=== PATIENT | female | born 1970 | race Caucasian/White ===

== ENCOUNTER → 2018-05-16 07:51 | Outpatient (CLI) | payer BC, SELFPAY ==
[2018-05-16 08:08] LABS: HCT 40.2 % (36.0-46.0); HGB 13.7 g/dL (12.0-15.5); Mean Corp. HGB Concentration 34.1 g/dL (32.0-36.0); Mean Corpuscular Hemoglobin 31.9 pg (27.0-33.0); Mean Corpuscular Volume 93.5 fL (80-95); Mean Platelet Volume 9.8 fL (8.0-11.0); Platelet Count 263 x1000/uL (130-400); RBC Distribution Width 13.7 % (11.7-14.6); White Blood Cell Count 8.84 k/cumm (4.4-10.8)
[2018-05-16 10:06] LABS: ALT 33 U/L (12-78); AST 18 U/L (15-37); Albumin 3.8 g/dL (3.4-5.0); Alkaline Phosphatase 93 U/L (46-116); Anion Gap 11.2 mmol/L (3-11); BUN 12 mg/dL (7-18); CO2 26.8 mmol/L (21.0-32.0); CREATININE 0.98 mg/dL (0.55-1.02); Chloride 101 mmol/L (98-107); Cholesterol 209 mg/dL (50-200); Glucose 96 mg/dL (70-100); HDL Cholesterol 43 mg/dL (40-60); LDL CHOLESTEROL 147 mg/dL (<100); Potassium 4.2 mmol/L (3.5-5.1); Sodium 139 mmol/L (136-145); TSH (W/Ref FT4) 2.36 uIU/mL (0.358-3.74); Total Protein 7.4 g/dL (6.4-8.2); Triglyceride 158 mg/dL (30-150)
[2018-05-16 10:19] LABS: Bilirubin, Total 0.5 mg/dL (0.2-1.0)
== END ==
PROVIDERS: PCP Family Medicine; Visit Provider Family Medicine
DX: E66.01 Morbid (severe) obesity due to excess calories (principal)
CPT/HCPCS: 36415; 80053; 80061; 83721; 85027; 84443

== ENCOUNTER 2019-04-18 00:36 | Outpatient (CLI) | payer OTHER, SELFPAY ==
--- NOTE | 2019-04-18 13:00 | DI.MAMMO_ITS ---
SYMPTOMS/DIAGNOSIS: SCREENING, Z12.31 MAMMOGRAMS: Mammograms were interpreted according to the usual protocol including computer analysis with CAD system, tomosynthesis and C view imaging. Comparison is made with prior examinations. No suspicious masses or microcalcifications are seen. There is no definite evidence of malignancy. IMPRESSION: Negative mammogram. Routine screening is recommended. Category 1, breast density B. MQSA ASSESSMENT OF FINDINGS: Negative. Category 1. Patient will receive a letter notifying them of these results. BI-RADS category B. There are scattered areas of fibroglandular density.
== END 2019-04-18 00:56 ==
PROVIDERS: PCP Family Medicine; Visit Provider Nurse Practitioner Family
DX: Z12.31 Encounter for screening mammogram for malignant neoplasm of breast (principal)
CPT/HCPCS: 77063; 77067

== ENCOUNTER 2019-05-14 16:45 | Outpatient (REF) | payer OTHER, SELFPAY ==
[2019-05-14 19:07] LABS: Bilirubin Negative (Negative); Blood Negative (Negative); Clarity Clear (Clear); Glucose Negative (Negative); Ketones Negative (Negative); Leukocyte Esterase Negative (Negative); Nitrite Negative (Negative); Urobilinogen 0.2 EU/dL (Up TO 0.2); pH 5.5 (5-8)
[2019-05-14 19:08] LABS: HCT 41.2 % (36.0-46.0); HGB 13.7 g/dL (12.0-15.5); Mean Corp. HGB Concentration 33.3 g/dL (32.0-36.0); Mean Corpuscular Hemoglobin 31.4 pg (27.0-33.0); Mean Corpuscular Volume 94.5 fL (80-95); Mean Platelet Volume 10.5 fL (8.0-11.0); Platelet Count 394 x1000/uL (130-400); RBC 4.36 m/cumm (4.00-5.20); RBC Distribution Width 13.3 % (11.7-14.6); White Blood Cell Count 8.27 k/cumm (4.4-10.8)
[2019-05-14 19:15] LABS: Anion Gap 10.4 mmol/L (3-11); BUN 9 mg/dL (7-18); CO2 25.6 mmol/L (21.0-32.0); CREATININE 0.81 mg/dL (0.55-1.02); Calcium 9.4 mg/dL (8.5-10.1); Chloride 101 mmol/L (98-107); Glucose 94 mg/dL (70-100); Potassium 4.4 mmol/L (3.5-5.1); Sodium 137 mmol/L (136-145)
== END 2019-05-14 17:05 ==
LOC: NCHCN 16:45
PROVIDERS: PCP Family Medicine; Visit Provider Family Medicine
DX: R51 Headache (principal); R53.83 Other fatigue; Z84.1 Family history of disorders of kidney and ureter
CPT/HCPCS: 80048; 85027; 81003

== ENCOUNTER 2019-05-15 01:05 | Outpatient (CLI) | payer OTHER, SELFPAY ==
--- NOTE | 2019-05-15 15:31 | DI.RAD_ITS ---
SYMPTOMS/DIAGNOSIS: CLAVICLE PAIN X 1-2 MOS, M89.8X8 RIGHT CLAVICLE: Two views were obtained. There are minimal degenerative changes at the acromioclavicular joint. No other bony or soft tissue abnormality seen.
== END 2019-05-15 01:25 ==
PROVIDERS: PCP Family Medicine; Visit Provider Family Medicine
DX: M25.511 Pain in right shoulder (principal); M89.8X8 Other specified disorders of bone, other site; M19.011 Primary osteoarthritis, right shoulder
CPT/HCPCS: 73000

== ENCOUNTER 2019-05-22 18:14 | Outpatient (REF) | payer OTHER, SELFPAY ==
[2019-05-24 09:54] LABS: IgA 196 mg/dL (85-499)
== END 2019-05-22 18:34 ==
LOC: NCHCN 18:14
PROVIDERS: PCP Family Medicine; Visit Provider Family Medicine
DX: Z84.1 Family history of disorders of kidney and ureter (principal)
CPT/HCPCS: 82784

== ENCOUNTER 2020-03-19 10:08 | Outpatient (REF) | payer OTHER, SELFPAY ==
[2020-03-19 16:41] LABS: Bilirubin Negative (Negative); Blood Negative (Negative); Clarity Clear (Clear); Glucose Negative (Negative); Ketones Negative (Negative); Leukocyte Esterase Small (Negative); Nitrite Negative (Negative); Urobilinogen 0.2 EU/dL (Up TO 0.2); pH 6.5 (5-8)
[2020-03-19 17:12] LABS: Bacteria Negative HPF (Negative); Crystals Negative HPF (Negative); Epithelial Cells Few HPF (Negative); Mucus Trace (Negative); RBC Negative HPF (0-2)
[2020-03-19 17:13] LABS: C & S Indicated? Yes; Casts Negative LPF (Negative)
== END 2020-03-19 10:28 ==
LOC: NCHCN 10:08
PROVIDERS: PCP Family Medicine; Visit Provider Family Medicine
DX: R82.90 Unspecified abnormal findings in urine (principal)
CPT/HCPCS: 81003; 81015; 87086

== ENCOUNTER 2020-03-19 18:55 | Outpatient (REF) | payer OTHER, SELFPAY ==
[2020-03-21 14:51] LABS: Chlamydia Result Negative (Negative); GC Result Negative (Negative)
== END 2020-03-19 19:15 ==
LOC: NCHCN 18:55
PROVIDERS: PCP Family Medicine; Visit Provider Family Medicine
DX: R82.90 Unspecified abnormal findings in urine (principal); Z11.6 Encounter for screening for other protozoal diseases and helminthiases
CPT/HCPCS: 87491; 87591; 87480; 87510; 87660

== ENCOUNTER 2020-04-09 09:41 | Outpatient (REF) | payer BC, SELFPAY ==
[2020-04-09 13:29] LABS: Bilirubin Negative (Negative); Blood Negative (Negative); Clarity Cloudy (Clear); Glucose Negative (Negative); Ketones Negative (Negative); Leukocyte Esterase Negative (Negative); Nitrite Negative (Negative); Specific Gravity >= 1.030 (1.005-1.025); Urobilinogen 0.2 EU/dL (Up TO 0.2); pH 5.5 (5-8)
== END 2020-04-09 10:01 ==
LOC: NCHCN 09:41
PROVIDERS: PCP Family Medicine; Visit Provider Nurse Practitioner Family
DX: R39.9 Unspecified symptoms and signs involving the genitourinary system (principal)
CPT/HCPCS: 81003; 87086; 87480; 87510; 87660

== ENCOUNTER 2020-05-05 13:20 | Outpatient (REF) | payer BC, SELFPAY ==
[2020-05-07 18:14] LABS: SARS-CoV-2 RNA Undetected (Undetected); SARS-CoV-2 Specimen Source Nasopharynx
== END 2020-05-05 13:40 ==
LOC: NCHCN 13:20
PROVIDERS: PCP Family Medicine; Visit Provider Nurse Practitioner Family
DX: Z11.59 Encounter for screening for other viral diseases (principal)
CPT/HCPCS: U0003

== ENCOUNTER 2020-06-09 19:59 | Outpatient (REF) | payer BC, SELFPAY ==
[2020-06-09 19:26] LABS: Hemoglobin A1C 5.7 % (<5.7)
[2020-06-09 20:06] LABS: Calculated LDL 145 mg/dL (<100); Cholesterol 233 mg/dL (<200); HDL Cholesterol 45 mg/dL (40-60); Triglyceride 218 mg/dL (<150)
== END 2020-06-09 20:19 ==
LOC: NCHCN 19:59
PROVIDERS: PCP Family Medicine; Visit Provider Family Medicine
DX: E66.01 Morbid (severe) obesity due to excess calories (principal); Z13.220 Encounter for screening for lipoid disorders; Z13.1 Encounter for screening for diabetes mellitus
CPT/HCPCS: 80061; 83036

== ENCOUNTER 2020-06-25 02:59 | Outpatient (CLI) | payer BC, SELFPAY ==
--- NOTE | 2020-06-25 | DI.MAMMO_ITS ---
EXAM: MAMMO SCREENING CLINICAL HISTORY: SCREENING,Z12.39 TECHNIQUE: Mammograms were interpreted according to the usual protocol including computer analysis w [employer] CAD system, tomosynthesis and C-view imaging. COMPARISON: 2011 through 2018 FINDINGS: The breasts are composed of scattered fibroglandular densities, Breast Density category B. No suspicious masses or suspicious microcalcifications are seen. No skin thickening or abnormal axillary lymph nodes are seen. There has been no significant change from prior exams. IMPRESSION: BI-RADS Category 1, Negative mammogram Yearly screening mammography is recommended. Breast Density - Category B, scattered fibroglandular densities. A negative radiographic report should not delay biopsy if a dominant or clinically suspicious mass is present. Up to ten percent of cancers are not identified on mammography. A negative report may reinforce clinical impression. Adenosis and dense breasts may obscure an underlying neoplasm. False positive reports average 6 to 10%. Patient will receive a letter notifying them of these results.
== END 2020-06-25 03:19 ==
PROVIDERS: PCP Family Medicine; Visit Provider Family Medicine
DX: Z12.31 Encounter for screening mammogram for malignant neoplasm of breast (principal)
CPT/HCPCS: 77063; 77067

== ENCOUNTER 2020-08-12 03:57 | Outpatient (CLI) | payer BC, SELFPAY ==
[2020-08-13 17:35] LABS: SARS-CoV-2 RNA Not Detected (NotDetected); SARS-CoV-2 RNA Source Nasal/Nares
== END 2020-08-12 04:17 ==
PROVIDERS: PCP Family Medicine; Visit Provider Surgery
DX: Z01.818 Encounter for other preprocedural examination (principal)
CPT/HCPCS: U0003

== ENCOUNTER 2020-08-15 09:53 | Day surgery (SDC) | payer BC, SELFPAY ==
[2020-08-15 10:09] VITALS: BP 124/86; PULSE 81; RESP 16; TEMP 36.3; O2SAT 97
[2020-08-15] MEDS: Lactated Ringers 1,000 ML 80 ML IV (10:31)
--- NOTE | 2020-08-15 12:44 | W.PM.DSUDISC ---
Discharge Plan Disposition Patient Disposition: HOME Condition: Good Discharge Details Reason For Visit: Colonoscopy Attending Provider: Jazmine Saldana Primary Care Provider: Yanira Deng Home Meds and New Rx's Prescriptions: Continued atorvastatin 40 mg tablet 40 mg PO DAILY RF: 0 Mirena 1 EACH intrauterine device 1 ea Intrauterine ONCE Qty: 1 RF: 0 glucosamine sulfate [Glucosamine] 500 mg tablet 500 mg PO BID RF: 0 spironolactone 100 mg tablet 100 mg PO BID RF: 0 aspirin [Adult Aspirin Regimen] 81 mg tablet,delayed release (DR/EC) 81 mg PO DAILY RF: 0 Discharge Instructions Additional Instructions: Findings: Your colonoscopy showed mild diverticulosis. Make sure to take in 30 grams of fiber daily. Follow up: Plan for routine screening colonoscopy in 10 years or sooner if symptoms arise. Please call if you develop: fevers >101.5 Nausea or Vomiting Abdominal pain that is not transient DAY SURGERY UNIT POST COLONOSCOPY INSTRUCTIONS 1. Because there will be medication in your system for the next 24 hours, you may feel a little sleepy. Your coordination will be affected. Therefore: a. Do not drive or operate dangerous equipment for 24 hours. b. Do not drink alcohol beverages for 24 hours (not even beer). c. Plan to go home and rest for the day. 2. Generally there are no restrictions on your activity after a day or so has gone by, but you may feel a bit fatigued for a few days. 3 After you arrive home you may have a light meal and return to a normal diet as you can tolerate it without feeling sick to your stomach. 4. After surgery, you may feel pain or discomfort. This should be only transient, but if it persists please contact your doctor. 5. If there are any questions regarding the findings of your procedure, please feel free to contact your doctor. 6. If you are unable to contact your doctor with a problem, contact the hospital at [phone]. 7. Continue all your regular medications unless directed otherwise. I understand the above instructions and have no questions. Signature of Patient or Responsible Adult Escort Date/Time Name of Responsible Adult Escort Signature of Nurse Date/Time Activity:: Activity as Tolerated Diet:: As Tolerated Discharge Orders Discharge Orders: Discharge Order (Routine); Ordered 08/15/20 Ordered By: Jazmine Saldana DS: Diagnosis Discharge Diagnosis (1) Diverticulosis: Status: Acute
--- NOTE | 2020-08-15 12:44 | W.COLOREPORT ---
Date of service: 08/15/20 Time of Service: 13:30 Colonoscopy Report Date of procedure: 08/15/20 Pre-op diagnosis general: Screening Post-op diagnosis procedure note: other (Mild diverticulosis) Procedure: Colonoscopy Surgeon: Jazmine Saldana Anesthesia proc note operative: MAC Indications: This 50 year old woman presents for her first screening colonoscopy. No symptoms or FH colon cancer. Procedure Description: The patient was placed in the left Grayson position. Propofol was titrated to sedation. Digital rectal examination revealed no abnormalities. The scope was advanced to the cecum without difficulty. The ileocecal valve and appendiceal orifice were clearly identified. The prep was good. The scope was slowly withdrawn over the course of greater than 6 minutes with no abnormalities seen in the ascending, transverse, descending, sigmoid colon or rectum including on retroflexed view. Mild sigmoid diverticulosis was noted. The patient tolerated the procedure well and was stable to recovery. Plan for routine screening colonoscopy in 10 years or sooner if symptoms indicate.
[2020-08-15] MEDS: Scopolamine 1 MG/3 DAYS PATCH (12:50)
[2020-08-15 13:58] VITALS: BP 114/73; PULSE 70; RESP 16; TEMP 36.5; O2SAT 98
== END 2020-08-15 14:30 | disposition home or self-care (01) ==
PROVIDERS: PCP Family Medicine; Visit Provider Surgery
PROC: 0DJD8ZZ Inspection of Lower Intestinal Tract, Via Natural or Artificial Opening Endoscopic (ICD-10-PCS; CPT 45378; principal; 2020-08-15 12:15)
DX: Z12.11 Encounter for screening for malignant neoplasm of colon (principal); K57.30 Diverticulosis of large intestine without perforation or abscess without bleeding
CPT/HCPCS: 45378; J2001; J2405

== ENCOUNTER 2020-11-13 17:04 | Emergency (ER) | payer BC, SELFPAY ==
[2020-11-13] VITALS (19 sets, daily range): BP systolic 104–132; BP diastolic 37–82; PULSE 59–79; RESP 9–19; TEMP 36.4–36.6; O2SAT 95–100
--- NOTE | 2020-11-13 17:45 | RT.EKG_ITS ---
APPROVED REPORT Exam: Resting ECG Patient Location: E HR:60 bpm ECG Measurements Heart Rate 60 AXIS ID 146 P 62 QRSd 91 QRS 46 QT 397 T 29 QTc 396 Conclusion Sinus rhythm...normal P axis, V-rate 60- 99 I have reviewed and interpreted ECG and agree with software generated interpretation.
--- NOTE | 2020-11-13 17:55 | ED.GENADUL_ITS ---
Discharge Plan Disposition Patient Disposition: HOME Condition: Stable Discharge Details Clinical Impression: Headache, Paresthesia Primary Care Provider: Yanira Deng ED Provider: Medhat Brewer Home Meds and New Rx's Prescriptions: Continued atorvastatin 40 mg tablet 40 mg PO DAILY RF: 0 Mirena 1 EACH intrauterine device 1 ea Intrauterine ONCE Qty: 1 RF: 0 spironolactone 100 mg tablet 100 mg PO BID RF: 0 aspirin [Adult Aspirin Regimen] 81 mg tablet,delayed release (DR/EC) 81 mg PO DAILY RF: 0 Discharge Instructions Instructions: Paresthesia (ED), General Headache (ED) Additional Instructions: At this time you are feeling significantly improved when compared to your initial presentation and your work-up in the ER has not revealed any obvious emergent process. Please watch for new or worsening symptoms and return to the ER for any concerns. I would like you to reach out to your primary care provider tomorrow for prompt outpatient reevaluation. Discharge Data Discharge Date/Time-TO BE ENTERED AT DEPARTURE: 11/13/20 21:00 Medical Decision Making This is a 50-year-old female who reports a front right and top headache, sharp in nature, began approximately 45 minutes ago. The sharpness has resolved and now is just dull in the same area. She reports paresthesias across her bilateral face in the cheek distribution, right jaw, and her right thumb and fi fth digit. She states that the tingling in her hand has already resolved completely. She did take 4 aspirin today total. Clinically she appears anxious and tearful but otherwise well. She is neurologically intact. Vital signs are unremarkable. We discussed options, will obtain cardiac work-up given the headache associate with paresthesias in her arm. Will obtain a head CT to rule out intracranial process. At this time she feels as though her symptoms are already improving on her own, will be given 1 g p.o. Tylenol. Initial laboratory values are unremarkable. Troponin less than 0.05. Both her head CT and chest x-ray read as negative by radiology. Upon reevaluation she reports that the tingling in her face has nearly completely resolved and the headache is lessening. She is agreeable to awaiting a 3-hour repeat troponin and EKG. Repeat EKG performed at 2009, please see official report by Dr. Rouse. Sinus rhythm, ventricular of 63. No STEMI. Repeat troponin remains less than 0.05. Upon reevaluation patient is using her cell phone without difficulty. She reports that she is essentially asymptomatic at this time. Denies any paresthesias or headache. She is comfortable discharge. We discussed her benign work-up today, the importance of watching for new or worsening symptoms and returning immediately to the ER, and lastly contacting her primary care prov ider tomorrow to set up outpatient reevaluation. Patient has no additional questions or concerns and is comfortable with this plan. Patient is no longer tearful or anxious. She has remained neurologically intact while under my care Medical Records Medical records reviewed: Yes I reviewed the patient's medical records. Imaging Data Radiologic Study: Attestation: I personally reviewed and interpreted this imaging study as follows: Imaging: X-Ray Radiologist's impression: Chest x-ray negative Radiologic Study #2: Attestation: I personally reviewed and interpreted this imaging study as follows: Imaging: CT Scan Radiologist's impression: Head CT negative Lab Data Lab results reviewed: Yes I reviewed the patient's lab results. Lab results narrative: Laboratory Tests Range/Units 11/13/20 11/13/20 11/13/20 18:05 18:05 19:47 WBC (4.4-10.8) 10^3/uL 9.64 RBC (3.93-5.22) 10^6/uL 4.56 Hgb (11.2-15.7) g/dL 14.4 Hct (36.0-46.0) % 42.7 MCV (80-95) fL 93.6 MCH (27.0-33.0) pg 31.6 MCHC (32.0-36.0) % 33.7 RDW (11.7-14.6) % 12.8 Plt Count (130-400) 10^3/uL 388 MPV (8.0-11.0) fL 9.7 Immature Gran % 0.4 Neutrophils % 58.6 Lymphocytes % 33.0 Monocytes % 5.9 Eosinophils % 1.7 Basophils % 0.4 Nucleated RBC % % 0 Absolute Neutrophils (1.2-6.7) 10^3/uL 5.65 Absolute Lymphocytes (1.2-3.4) 10^3/uL 3.18 Absolute Monocytes (0.1-0.8) 10^3/uL 0.57 Absolute Eosinophils (0.0-0.7) 10^3/uL 0.16 Absolute Basophils (0.0-0.2) 10^3/uL 0.04 Sodium (136-145) mmol/L 139 Potassium (3.5-5.1) mmol/L 4.0 Chloride (98-107) mmol/L 101 Carbon Dioxide (21.0-32.0) mmol/L 29.0 Anion Gap (3-11) mmol/L 9.0 BUN (7-18) mg/dL 8 Creatinine (0.55-1.02) mg/dL 0.9 Estimated GFR/1.73 m2 (mL/min/1.73m2) >= 60.00 Glucose (74-106) mg/dL 94 Calcium (8.5-10.1) mg/dL 9.6 Magnesium (1.8-2.4) mg/dL 1.9 Total Bilirubin (0.2-1.0) mg/dL 0.6 AST (15-37) U/L 17 ALT (14-59) U/L 31 Alkaline Phosphatase (46-116) U/L 115 Troponin I (<0.06) ng/mL < 0.05 < 0.05 Total Protein (6.4-8.2) g/dL 8.3 H Albumin (3.4-5.0) g/dL 4.0 ECG Data Attestation: I personally reviewed and interpreted this ECG (s) as follows: Interpretation: Please see official report by Dr. Rouse. Sinus rhythm, ventricular rate of 60. No STEMI. HPI General Mode of arrival: ambulatory . Date/Time Provider Initiated Documentation: 11/13/20 17:17 . Limitations to Documentation: no limitations . Information obtained by: patient . HPI Narrative: This is a 50-year-old female who denies any significant past medical history. She states about 45 minutes ago while she was at work she noticed a sharp pain in her head along the front, right, top aspect. She states the pains were shooting and sharp initially and now just a mild dull headache in the same area remains. She states subsequently she developed some altered sensation in her cheeks bilaterally as well as her right jaw near her mouth. She also felt tingling in her right thumb and fifth finger. She denies any visual changes, neck pain, chest pain, shortness of breath, abdominal pain, nausea, vomiting, pain or swelling in her legs. She states that her brother in the last year of a heart attack in his early-mid 40s and that this has been very hard on her. She denies any other stress, recent illness or trauma. She typically takes a baby aspirin every morning, subsequently took 3 more when her headache began. Related Data Home Medications Medication Instructions Recorded Confirmed Mirena 1 ea INTRAUTERINE ONCE #1 implant 03/27/14 11/13/20 aspirin 81 mg tablet,delayed 81 mg PO DAILY 07/16/20 11/13/20 release spironolactone 100 mg tablet 100 mg PO BID 07/16/20 11/13/20 atorvastatin 40 mg tablet 40 mg PO DAILY 08/01/20 11/13/20 Allergies Allergy/AdvReac Type Severity Reaction Status Date / Time Penicillins Allergy Severe Anaphylaxsi Unverified 11/13/20 17:21 s codeine AdvReac Intermediate upset Verified 11/13/20 17:21 stomach naproxen sodium [From Aleve] AdvReac tachycardia Unverified 11/13/20 17:21 General Stated Complaint: Headache GABBY: 3 Review of Systems Constitutional Constitutional: Denies fatigue, Denies fever(s), Reports headache(s) and Denies weakness Eyes Eyes: Denies change in vision ENT Ears, Nose, Mouth, and Throat: Reports headache(s) and Denies neck pain Cardiovascular Cardiovascular: Denies chest pain and Denies dyspnea Respiratory Respiratory: Denies cough and Denies dyspnea Gastrointestinal Gastrointestinal: Denies abdominal pain, Denies nausea and Denies vomiting Musculoskeletal Musculoskeletal: Denies back pain, Denies neck pain, Reports numbness and Reports tingling Integumentary/Breasts Skin/Breast: Denies rash Neurologic Neurologic: Reports headache(s), Reports numbness, Reports tingling and Denies weakness Endocrine Endocrine: Denies fatigue [facility] Medical History Clavicle pain Finger pain, right Grief reaction Knee pain, left Morbid obesity Pain of left thumb Trochanteric bursitis Surgical History Appendectomy (~1994) section for twins Cholecystectomy (~1994) H/O knee surgery x3 Family History Mother Raynauds disease Father Renal transplant recipient due to viral illness Social History Smoking/Tobacco Use Status: Never Smoking risk assessment performed?: Yes Alcohol Intake: current Alcohol Intake frequency: a few times a week Alcohol type: hard liquor Drug use: Never Substance use type: does not use Do you feel safe at home: Yes Do you feel safe in your relationship?: Yes Exam Const General: cooperative, healthy appearing, comfortable, no acute distress and anxious (Tearful) Orientation: alert, awake and oriented x3 HENMT Head: normal to inspection, normocephalic and atraumatic Ears: external ears normal, TM's normal bilaterally and EAC's normal General nose exam: external nose normal Face and sinus: normal facial exam Mouth: moist mucous membranes Throat: posterior oropharynx normal Eyes General: appearance normal, both eyes and all related structures Alignment and Position: alignment normal Periorbital: periorbital findings normal Eyelids: eyelids normal Conjunctivae: conjunctivae normal Sclera: sclerae normal Cornea: corneas normal Pupils: PERRL EOM: EOM intact bilaterally Direct ophthalmoscopy: normal light reflex Neck Neck: normal visual inspection, full ROM, no meningeal signs, trachea midline, supple and nontender Resp Effort & Inspection: normal respiratory effort and able to speak in complete sentences Auscultation: clear to auscultation bilaterally Cardio Rate: regular rate Rhythm: regular rhythm GI Palpation: soft, not firm, no guarding and nontender Back/Spine/Pelvis Back: No back tenderness Skin General skin exam: no rashes or lesions noted Neuro General: patient alert, patient awake, patient oriented x3, moves all extremities and no focal motor deficits Cranial Nerves: CN's II-XI intact bilaterally Cognition: normal cognition Speech: speech normal Gait: normal gait Motor: muscle tone normal throughout, strength 5/5 throughout, no pronator drift, no movement abnormalities noted and no fasciculations Sensory Exam: no sensory deficits noted Coordination: [id number] test normal and Does not sway with eyes open Extrem General: normal to inspection, full ROM, capillary refill normal, no pedal edema and no calf tenderness Psych Appearance: grossly normal Mental Status: mental status grossly normal Course Vital Signs Vital signs: Vital Signs Temperature 36.4 C L 02/18/21 17:15 Pulse 69 11/13/20 17:15 Respiratory Rate 12 11/13/20 17:15 Blood Pressure 132/82 11/13/20 17:15 Pulse Oximetry 99 11/13/20 17:15 Temperature 36.4 C L 11/13/20 17:15 Temperature Source Skin 11/13/20 17:15 Pulse 69 11/13/20 17:15 Respiratory Rate 12 11/13/20 17:15 Respiratory Effort 11/13/20 17:22 Blood Pressure 132/82 11/13/20 17:15 Pulse Oximetry 99 11/13/20 17:15 Oxygen Delivery Method Room Air 11/13/20 17:15 Oxygen Flow Rate 0 11/13/20 17:15 Pain Level 4 11/13/20 17:23 Comment 11/13/20 17:15
[2020-11-13 18:19] LABS: Abs Immature Grans 0.04 10^3/uL (0.0-0.06); Absolute Basophil Count 0.04 10^3/uL (0.0-0.2); Absolute Eosinophil Count 0.16 10^3/uL (0.0-0.7); Absolute Lymphocyte Count 3.18 10^3/uL (1.2-3.4); Absolute Monocyte Count 0.57 10^3/uL (0.1-0.8); Absolute Neutrophil Count 5.65 10^3/uL (1.2-6.7); Basophils % 0.4; Eosinophils % 1.7; HCT 42.7 % (36.0-46.0); HGB 14.4 g/dL (11.2-15.7); Immature Grans % 0.4; MCH 31.6 pg (27.0-33.0); MCHC 33.7 % (32.0-36.0); MCV 93.6 fL (80-95); MPV 9.7 fL (8.0-11.0); Monocytes % 5.9; Neutrophils % 58.6; Nucleated RBC 0 %; Platelet Count 388 10^3/uL (130-400); RBC 4.56 10^6/uL (3.93-5.22); RDW 12.8 % (11.7-14.6); RDW-SD 43.8 fL; WBC 9.64 10^3/uL (4.4-10.8)
[2020-11-13 18:34] LABS: ALT 31 U/L (14-59); AST 17 U/L (15-37); Alkaline Phosphatase 115 U/L (46-116); BUN 8 mg/dL (7-18); Bilirubin, Total 0.6 mg/dL (0.2-1.0); CREATININE 0.9 mg/dL (0.55-1.02); Calcium 9.6 mg/dL (8.5-10.1); Chloride 101 mmol/L (98-107); Glucose 94 mg/dL (74-106); Magnesium 1.9 mg/dL (1.8-2.4); Sodium 139 mmol/L (136-145); Total Protein 8.3 g/dL (6.4-8.2)
[2020-11-13 18:35] LABS: Troponin I < 0.05 ng/mL (<0.06)
--- NOTE | 2020-11-13 18:45 | DI.CT_ITS ---
EXAM: CT HEAD WO CLINICAL HISTORY: R frontal BELLE, bilateral facial paresthesias. TECHNIQUE: Imaging Protocol: Axial computed tomography images with coronal and sagittal reformatted images were created and reviewed COMPARISON: CT HEAD WITHOUT CONTRAST from 12/14/[address] HEAD WO from 11/13/2020 FINDINGS: Ventricles and Extra axial spaces: Normal in size and morphology for the patient's age. Hemorrhage: None. Cerebral parenchyma: Normal. Midline shift: None. Brainstem/Cerebellum: Normal. Calvarium: Normal. Visualized Paranasal sinuses/Mastoids: Clear. Soft Tissues: Unremarkable. IMPRESSION: No acute intracranial process. RADIATION DOSE DELIVERED: 741.49mGy.cm Total DLP DATA REPOSITORY: All CT scans at this facility are submitted to the National Radiology Data Registry (NRDR) Dose Index Registry (DIR) with the [employer] (A[employer]). RADIATION OPTIMIZATION: All CT scans at this facility use at least one of these dose optimization te chniques: automated exposure control; mA and/or kV adjustment per patient size (includes targeted exa ms where dose is matched to clinical indication); or iterative reconstruction.
--- NOTE | 2020-11-13 18:51 | DI.RAD_ITS ---
EXAM: XR CHEST 2V PA LATERAL CLINICAL HISTORY: Headache, right arm paresthesias. TECHNIQUE: 2D digital imaging was performed. COMPARISON: CR CHEST 2 VIEWS PA,LAT from 03/09/2010 FINDINGS: Heart size is normal. The mediastinum is not widened. Lungs are clear. No infiltrates nor pleural effusions. IMPRESSION: No acute pulmonary findings. DATA REPOSITORY: RADIATION DOSE DELIVERED:
[2020-11-13] MEDS: Acetaminophen 500 MG TAB 1000 MG PO (19:00)
--- NOTE | 2020-11-13 19:08 | DI.VRAD_ITS ---
PROCEDURE INFORMATION: Exam: XR Chest, 2 Views Exam date and time: 11/13/2020 6:52 PM Age: 50 years old Clinical indication: Patient HX: Headache, RT arm parasthesis x couple hours TECHNIQUE: Imaging protocol: XR of the chest Views: 2 views. COMPARISON: CR XR CLAVICLE RT 05/15/2019 3:29 PM FINDINGS: No airspace consolidation, pleural effusion or pneumothorax. The cardiomediastinal silhouette is unremarkable. IMPRESSION: No acute findings. Dictated and Authenticated by: Chente Hsu MD. Ordering:RUT Meléndez MD
--- NOTE | 2020-11-13 19:11 | DI.VRAD_ITS ---
PROCEDURE INFORMATION: Exam: CT Head Without Contrast Exam date and time: 11/13/2020 6:46 PM Age: 50 years old Clinical indication: Numbness / parasthesia TECHNIQUE: Imaging protocol: Computed tomography of the head without contrast. COMPARISON: CT HEAD WITHOUT CONTRAST 12/14/2013 4:22 PM FINDINGS: There is no intracranial hemorrhage. There is no mass effect or midline shift. The ventricles and sulci are appropriate in size and configuration for age. Normal cruz white differentiation. The calvarium is intact. The visualized paranasal sinuses and mastoid air cells are normally aerated bilaterally. IMPRESSION: No acute intracranial findings. Dictated and Authenticated by: Chente Hsu MD. Ordering:RUT Meléndez MD
--- NOTE | 2020-11-13 20:00 | RT.EKG_ITS ---
APPROVED REPORT Exam: Resting ECG Patient Location: E HR:63 bpm ECG Measurements Heart Rate 63 AXIS AK 164 P 65 QRSd 85 QRS 48 QT 396 T 30 QTc 406 Conclusion Sinus rhythm...normal P axis, V-rate 60- 99 Low voltage, precordial leads...precordial leads <1.0mV I have reviewed and interpreted ECG and agree with software generated interpretation.
[2020-11-13 20:10] LABS: Troponin I < 0.05 ng/mL (<0.06)
== END 2020-11-13 21:00 | disposition home or self-care (01) ==
PROVIDERS: Emergency Provider Physician Assistant; PCP Family Medicine
DX: R51.9 Headache, unspecified (principal); R20.2 Paresthesia of skin; Z82.41 Family history of sudden cardiac death
CPT/HCPCS: 36415; 80053; 93005; 99284; 70450; 71046; 83735; 84484; 85025; 93010

== ENCOUNTER 2021-06-15 16:38 | Outpatient (REF) | payer BC, SELFPAY ==
[2021-06-15 19:02] LABS: ESR 21 mm/hr (0-20)
[2021-06-15 19:47] LABS: Bilirubin Negative (Negative); Blood Trace-intact (Negative); Clarity Clear (Clear); Glucose Negative (Negative); Ketones Negative (Negative); Leukocyte Esterase Negative (Negative); Nitrite Negative (Negative); Specific Gravity >= 1.030 (1.005-1.025); Urobilinogen 0.2 EU/dL (Up TO 0.2); pH 5.5 (5-8)
[2021-06-15 19:57] LABS: C-Reactive Protein 0.28 mg/dL (0.0-0.3); TSH (W/Ref FT4) 1.06 uIU/mL (0.36-3.74)
[2021-06-15 20:02] LABS: Bacteria Rare HPF (Negative); C & S Indicated? No; Crystals Negative HPF (Negative); Epithelial Cells Moderate HPF (Negative); Mucus Heavy (Negative); RBC 0-2 HPF (0-2); WBC 0-2 HPF (0-5)
[2021-06-17 09:20] LABS: Cyclic Citrullinated Peptide <2.5 U/mL (<5.0)
== END 2021-06-15 16:39 | disposition home or self-care (01) ==
LOC: NCHCN 16:38
PROVIDERS: PCP Family Medicine; Visit Provider Family Medicine
DX: R35.0 Frequency of micturition (principal); N89.8 Other specified noninflammatory disorders of vagina; R53.83 Other fatigue; M25.59 Pain in other specified joint
CPT/HCPCS: 85652; 86200; 81003; 81015; 84443; 86140; 87480; 87510; 87660

== ENCOUNTER 2022-06-28 17:43 | Outpatient (REF) | payer BC, SELFPAY ==
--- NOTE | 2022-06-28 15:50 | PAPFT_PTH ---
PATIENT: Belinda Chau LOC: [facility]#:[id number] AGE/SX: 51/F ROOM: RE06/28/[address]: Yanira Deng : 1970 BED: DIS: 06/28/2022 SPEC #: [id number] RECD: 06/28/22 18:30 STATUS: EMILY REQ #: [id number] SCOOBY: 06/28/22 15:[address]: Yanira Deng DEPT: [facility] Cytology RECD BY: Radha Fraire Tissues: 1 - CX/ENDOCX FOR PAP SMEARS Procedures: PAP THIN PREP/UVM Screening HPV DNA PROBE Comments: [id number]
== END 2022-06-28 17:44 | disposition home or self-care (01) ==
LOC: NCHCN 17:43
PROVIDERS: PCP Family Medicine; Visit Provider Family Medicine
DX: Z12.4 Encounter for screening for malignant neoplasm of cervix (principal); Z11.51 Encounter for screening for human papillomavirus (HPV)
CPT/HCPCS: 88142; 87624

== ENCOUNTER → 2022-07-21 02:33 | Outpatient (CLI) | payer BC, SELFPAY ==
--- NOTE | 2022-07-21 | DI.MAMMO_ITS ---
Exam(s) MAMMO SCREENING EXAM: MAMMO SCREENING CLINICAL HISTORY: SCREENING, Z12.39 TECHNIQUE: Bilateral full field digital CC and MLO mammographic images were obtained with 3D tomosyn thesis and utilizing computer aided detection (CAD). COMPARISON: Available for comparison. FINDINGS: Masses/Architectural Distortion: None seen. Microcalcifications: No suspicious pleomorphic-type are seen. Skin Thickening/Nipple Retraction: None. IMPRESSION: 1. No significant interval change with no specific features of malignancy noted. 2. Unless there is more urgent need, screening mammography is recommended, as per [employer] [place] [employer] guidelines. BI-RADS Category 1 - Negative Breast Density - Category B - Scattered areas of fibroglandular density Breast density category C or D implies that the patient has dense breast tissue. Dense breast tissue is very common and is not abnormal but dense breast tissue can make it harder to find cancer on a ma mmogram. Also, dense breast tissue may increase their breast cancer risk. This information about the result of the mammogram report was provided to the patient to raise their awareness. Use this report when you speak with the patient about their risks for breast cancer, which includes their family hist ory. At that time, you may recommend for more screening tests (Ultrasound or MRI) as they might be us eful based on their risk. A negative radiographic report should not delay biopsy if a dominant or clinically suspicious mass is present. Up to ten percent of cancers are not identified on mammography. A negative report may reinforce clinical impression. Adenosis and dense breasts may obscure an underlying neoplasm. False positive reports average 6 to 10%. Patient will receive a letter notifying them of these results.
== END ==
PROVIDERS: PCP Family Medicine; Visit Provider Family Medicine
DX: Z12.31 Encounter for screening mammogram for malignant neoplasm of breast (principal)
CPT/HCPCS: 77063; 77067

== ENCOUNTER 2022-12-01 16:58 | Outpatient (CLI) | payer BC, SELFPAY ==
[2022-12-01 16:59] LABS: HCT 43.8 % (36.0-46.0); HGB 14.9 g/dL (11.2-15.7); MCH 31.5 pg (27.0-33.0); MCV 93 fL (80-95); MPV 9.5 fL (8.0-11.0); Platelet Count 422 10^3/uL (130-400); RBC 4.73 10^6/uL (3.93-5.22); RDW 13.2 % (11.7-14.6); RDW-SD 44.8 fL; WBC 11.85 10^3/uL (4.4-10.8)
[2022-12-01 17:38] LABS: ALT 33 U/L (14-59); AST 16 U/L (15-37); Albumin 4.2 g/dL (3.4-5.0); Alkaline Phosphatase 121 U/L (46-116); Bilirubin, Direct 0.2 mg/dL (0.0-0.2); Bilirubin, Total 0.6 mg/dL (0.2-1.0); Lipase 78 U/L (16-77); Total Protein 7.8 g/dL (6.4-8.2)
== END 2022-12-01 16:59 | disposition home or self-care (01) ==
LOC: LBO 16:58
PROVIDERS: PCP Family Medicine; Visit Provider Family Medicine
DX: R10.13 Epigastric pain (principal)
CPT/HCPCS: 36415; 80076; 83690; 85027

== ENCOUNTER 2023-07-04 16:29 | Outpatient (REF) | payer OTHER, SELFPAY ==
[2023-07-04 19:41] LABS: Hemoglobin A1C 5.9 % (<5.7)
[2023-07-04 20:16] LABS: ALT 24 U/L (14-59); AST 16 U/L (15-37); Albumin 4.1 g/dL (3.4-5.0); Alkaline Phosphatase 123 U/L (46-116); Anion Gap 8.5 mmol/L (3-11); BUN 11 mg/dL (7-18); Bilirubin, Total 0.6 mg/dL (0.2-1.0); CO2 27.5 mmol/L (21.0-32.0); CREATININE 0.9 mg/dL (0.55-1.02); Calcium 10.3 mg/dL (8.5-10.1); Chloride 100 mmol/L (98-107); Estimated GFR 76.44 (mL/min/1.73m2); Glucose 97 mg/dL (74-106); Lipase 62 U/L (16-77); Potassium 4.4 mmol/L (3.5-5.1); Sodium 136 mmol/L (136-145); TSH (W/Ref FT4) 1.05 uIU/mL (0.36-3.74); Total Protein 7.9 g/dL (6.4-8.2)
[2023-07-06 10:06] LABS: Hepatitis C Ab w Rflx HCV PCR Negative (Negative)
[2023-07-06 10:27] LABS: HIV-1/2 Ag & Ab Screen Negative (Negative)
== END 2023-07-04 16:30 | disposition home or self-care (01) ==
LOC: NCHCN 16:29
PROVIDERS: PCP Family Medicine; Visit Provider Family Medicine
DX: Z00.00 Encounter for general adult medical examination without abnormal findings (principal); R39.14 Feeling of incomplete bladder emptying; E66.9 Obesity, unspecified; E78.5 Hyperlipidemia, unspecified; M17.9 Osteoarthritis of knee, unspecified; M77.11 Lateral epicondylitis, right elbow; K21.9 Gastro-esophageal reflux disease without esophagitis; M79.645 Pain in left finger(s)
CPT/HCPCS: 80053; 83690; 86803; 87389; 83036; 84443

== ENCOUNTER 2024-02-18 23:59 | Emergency (ER) | payer BC, SELFPAY ==
[2024-02-19 00:02] VITALS: BP 153/79; PULSE 91; RESP 18; TEMP 36.8; O2SAT 99
[2024-02-19] MEDS: Acetaminophen 500 MG TAB 1000 MG PO (00:32)
--- NOTE | 2024-02-19 00:33 | DI.RAD_ITS ---
Exam(s) XR HAND LT COMPLETE XR WRIST LT COMPLETE EXAM: XR HAND LT COMPLETE CLINICAL HISTORY: 'pop' in left thumb, TTP. TECHNIQUE: 2D digital imaging was performed. Three views. COMPARISON: CR,XR XR WRIST LT COMPLETE from 02/19/2024 FINDINGS: BONES: No acute fracture is present. No bony destructive lesion is seen. JOINTS: No dislocation present. Severe degenerative changes at the 1st carpometacarpal joint. Lit tle degenerative changes elsewhere. SOFT TISSUE: Normal. 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 No evidence of fracture. DATA REPOSITORY: RADIATION DOSE DELIVERED:
--- NOTE | 2024-02-19 00:40 | ED.GENADUL_ITS ---
Discharge Plan Disposition Patient Disposition: Home Condition: Good Discharge Details Clinical Impression: Sprain Primary Care Provider: Yanira Deng ED Provider: Jacki Ziegler Home Meds and New Rx's Prescriptions: Continued atorvastatin 40 mg tablet 40 mg PO DAILY Mirena 1 EACH intrauterine device 1 ea Intrauterine ONCE Qty: 1 spironolactone 100 mg tablet 100 mg PO BID pantoprazole 40 mg tablet,delayed release (DR/EC) PO Patient Comments: TAKE 1 TABLET BY MOUTH TWICE DAILY Discharge Instructions Instructions: Hand Sprain (ED) Additional Instructions: Call your primary care doctor on Tuesday to schedule an appointment for this week to follow up on your visit today. Referrals: Yanira Deng MD [Primary Care Provider] - [facility] General Mode of arrival: ambulatory . Date/Time Provider Initiated Documentation: 02/19/24 00:04 . Limitations to Documentation: no limitations . Information obtained by: patient . HPI Narrative: 53yo F presenting with acute left wrist pain. While playing cards this evening leaned on her chair with her left hand to stand up and suddenly felt moderate sharp left wrist and thumb pain. Tried ibuprofen and ice at home with mild improvement. Pain with movement at wrist and thumb. No numbness, tingling, or weakness. She is otherwise in her usual state of health. Related Data Home Medications Medication Instructions Recorded Confirmed levonorgestrel 21 mcg/24 hr (up to 1 ea intrauterine ONCE #1 implant 03/27/14 02/19/24 8 years) 52 mg intrauterine device (Mirena) spironolactone 100 mg tablet 100 mg PO BID 07/16/20 02/19/24 atorvastatin 40 mg tablet 40 mg PO DAILY 08/01/20 02/19/24 pantoprazole 40 mg tablet,delayed mg PO 02/19/24 release Allergies Allergy/AdvReac Type Severity Reaction Status Date / Time Penicillins Allergy Severe Anaphylaxsi Unverified 02/19/24 00:40 s codeine AdvReac Intermediate upset Verified 02/19/24 00:40 stomach naproxen sodium [From Aleve] AdvReac tachycardia Unverified 02/19/24 00:40 General Stated Complaint: Orthopedic GABBY: 4 Review of Systems Narrative: see HPI Exam Narrative Exam Narrative: General: Alert, well appearing, well nourished, in no acute distress. Head: Normocephalic, atraumatic Neck: Trachea midline, ?Neck supple. Cardiac: ?RRR, no murmurs appreciated Resp: No respiratory distress. CTAB. Abd: ?non-distended Extremities: ?No deformities.? No peripheral edema. 2+ symmetric radial pulses. LUE: Sensation to light touch intact throughout left wrist and hand including all digits. Brisk capillary refill all digits. No deformity. No snuffbox tenderness. Moderate tenderness to palpation over palmar surface of radial aspect of wrist as well lateral aspect of middle phalanx of thumb. Full strength with abduction and adduction at all digits and with wrist flexion and extension. Able to ok and oppose all digits without difficutly. Neurologic: GCS 15. ? Moves all extremities freely against gravity Course Vital Signs Vital signs: Vital Signs Temperature 36.8 C 02/19/24 00:02 Pulse 91 H 02/19/24 00:02 Respiratory Rate 18 02/19/24 00:02 Blood Pressure 153/79 H 02/19/24 00:02 Pulse Oximetry 99 02/19/24 00:02 Temperature 36.8 C 02/19/24 00:02 Temperature Source Tympanic 02/19/24 00:02 Pulse 91 H 02/19/24 00:02 Respiratory Rate 18 02/19/24 00:02 Respiratory Effort Normal 02/19/24 00:04 Blood Pressure 153/79 H 02/19/24 00:02 Pulse Oximetry 99 02/19/24 00:02 Oxygen Delivery Method Room Air 02/19/24 00:02 Oxygen Flow Rate 0 02/19/24 00:02 Pain Level 6 02/19/24 00:02 Medical Decision Making 53yo F presenting with left thumb and wrist pain after pushing up from a seated position. Vital signs reassuring, neurovascular intact on exam with no deformities; no indication for CT/vascular imaging. No snuffbox tenderness. Most likely sprain; will eval for fracture/dislocation with XR. Took ibupforen at home; given tylenol and ice here. Plain films wrist and hand independently reviewed; no displaced fracture or dislocation on my view, agree with radiology read below. On reassessment she remains well appearing with a reassuring exam. Offered wrist splint for comfort which she declined; has one at home she may use. Discharged home; discharge instructions and return precautions were reviewed with patient who verbalized understanding. All questions were answered and she is in full agreement with the plan. Imaging Data Radiologic Study: Imaging: X-Ray Radiologist's impression: IMPRESSION: 1. No acute osseous abnormality. If symptoms persist, follow-up imaging is advised. 2. 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 Radiologic Study #2: Imaging: X-Ray Radiologist's impression: IMPRESSION: No acute findings. Moderate osteoarthritis or CPPD affecting the 1st CMC joint Quality:SDOH Health Related Social Needs: No Data to Display PFSH All Active Problems (Updated 02/19/24 @ 01:36 by Jacki Ziegler MD) Sprain (Acute) Diverticulosis (Acute) IUD surveillance (Acute) Medical History Clavicle pain Finger pain, right Grief reaction Knee pain, left Morbid obesity Pain of left thumb Trochanteric bursitis Surgical History Appendectomy (~1994) section for twins Cholecystectomy (~1994) H/O knee surgery x3 Family History Mother Raynauds disease Father Renal transplant recipient due to viral illness Social History Smoking/Tobacco Use Status: Never Smoking risk assessment performed?: Yes Alcohol Intake: current Alcohol Intake frequency: a few times a week Alcohol type: hard liquor Drug use: Never Substance use type: does not use Do you feel safe at home: Yes Do you feel safe in your relationship?: Yes PAWSS Have you Been Recently Intoxicated or Drunk Within the Last 30 days?: No Have you Ever Experienced Previous Episodes of Alcohol Withdrawal?: No Have you ever Experienced Withdrawal Seizures?: No Have you ever Experienced Delirium Tremens(DT)s?: No Have you ever undergone Alcohol Rehabilitation Treatment (i.e, inpt ot out patient treatment programs)?: No Have you ever Experienced Blackouts?: No Have you ever Combined Alcohol with other Downers within the last 90 days?: No Have you ever Combined Alcohol with any other Substance of Abuse during the last 90 days?: No Positive Blood Alcohol level on Presentation? [PCS.BAL]: No Evidence of Increased Autonomic Activity (i.e. HR>120, tremor, sweating, agitation, nausea)?: No Result: 0
--- NOTE | 2024-02-19 01:18 | DI.VRAD_ITS ---
PROCEDURE INFORMATION: Exam: XR Left Hand Exam date and time: 02/19/2024 12:23 AM Age: 53 years old Clinical indication: Pain; Hand; Patient HX: Pop in left thumb, ttp TECHNIQUE: Imaging protocol: Radiologic exam of the left hand. Views: 3 or more views. COMPARISON: No relevant prior studies available. FINDINGS: Bones/joints: Moderate narrowing, sclerosis, remodeling, and osteophytes are noted at the 1st carpometacarpal joint. Other joint spaces are comparatively normal. No bony erosion or destructive change is observed. There are no acute fractures observed. Soft tissues: Unremarkable. IMPRESSION: No acute findings. Moderate osteoarthritis or CPPD affecting the 1st CMC joint. Dictated and Authenticated by: Manjeet Pepe MD. Ordering:MARY Echeverria MD
--- NOTE | 2024-02-19 01:20 | DI.VRAD_ITS ---
PROCEDURE INFORMATION: Exam: XR Left Wrist Exam date and time: 02/19/2024 12:25 AM Age: 53 years old Clinical indication: Pain; Wrist; Patient HX: Pop in left thumb, ttp TECHNIQUE: Imaging protocol: Radiologic exam of the left wrist. Views: 3 or more views. COMPARISON: CR XR HAND LT COMPLETE 02/19/2024 12:23 AM FINDINGS: Bones/joints: No acute fracture. No dislocation. Moderate narrowing, sclerosis, and osteophyte formation noted at the 1st carpometacarpal joint. Subchondral cysts are present. Other joint spaces appear normal. Soft tissues: No significant soft tissue gas. IMPRESSION: 1. No acute osseous abnormality. If symptoms persist, follow-up imaging is advised. 2. 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 Dictated and Authenticated by: Manjeet Pepe MD. Ordering:MARY Echeverria MD
[2024-02-19 01:39] VITALS: RESP 18
== END 2024-02-19 01:39 | disposition home or self-care (01) ==
PROVIDERS: Emergency Provider Student in an Organized Health Care Education/Training Program; PCP Family Medicine
DX: S63.8X2A Sprain of other part of left wrist and hand, initial encounter (principal); X50.0XXA Overexertion from strenuous movement or load, initial encounter
CPT/HCPCS: 99284; 73110; 73130; 99283

== ENCOUNTER → 2025-07-26 03:32 | Outpatient (CLI) | payer BC, SELFPAY ==
--- NOTE | 2025-07-26 15:53 | DI.MAMMO_ITS ---
Exam(s) MAMMO SCREENING EXAM: MAMMO SCREENING CLINICAL HISTORY: SCREENING MAMMO Z12.31. TECHNIQUE: Bilateral full field digital CC and MLO mammographic images were obtained with 3D tomosynthesis and utilizing computer aided detection (CAD). COMPARISON: Prior mammograms were reviewed. FINDINGS: There has been no significant change in the appearance and distribution of the fibroglandular tissue. There are no CAD designations. There are no new spiculated masses nor malignant appearing microcalcification groups. There is no significant architectural distortion nor skin thickening-retraction. IMPRESSION: No radiographic evidence of malignancy. BI-RADS Category 1 - Negative Breast Density - Category B - There are scattered areas of fibroglandular density. Breast density Category C or D implies that the patient has dense breast tissue. Dense breast tissue can make it harder to find cancer on a mammogram. Dense breast tissue is also associated with an increased risk of breast cancer. This information about the result of the mammogram report was provided to the patient to raise their awareness. Use this report when you speak with the patient about their risks for breast cancer, which includes their family history. At that time, you may recommend additional screening tests (Ultrasound or MRI) as these tests may add significant information. A negative radiographic report should not delay biopsy if a dominant or clinically suspicious mass is present. Up to ten percent of cancers are not identified on mammography. A negative report may reinforce clinical impression. Adenosis and dense breasts may obscure an underlying neoplasm. False positive reports average 6 to 10%. Patient will receive a letter notifying them of these results.
== END ==
LOC: DI 03:32
PROVIDERS: PCP Family Medicine; Visit Provider Family Medicine
DX: Z12.31 Encounter for screening mammogram for malignant neoplasm of breast (principal)
CPT/HCPCS: 77063; 77067